=== PATIENT | male | born 1965 | race Caucasian/White ===

== ENCOUNTER → 2021-05-24 | Outpatient (CLI) | payer OTHER | LOC: LAB 12:25 | PROVIDERS: ATTEND Physician Assistant | DX: Z79.899 Other long term (current) drug therapy (principal) | CPT/HCPCS: 36415; 86480 ==

== ENCOUNTER → 2022-08-03 | Outpatient (CLI) | payer OTHER ==
[2022-08-03 15:49] LABS: ALBUMIN 4.2 GM/DL (3.2-4.5); HEMATOCRIT 47 % (40-54); HEMOGLOBIN 16.4 g/dL (13.3-17.7); MEAN CORPUSCULAR HEMOGLOBIN 31 pg (25-34); MEAN CORPUSCULAR HGB CONC 35 g/dL (32-36); MEAN CORPUSCULAR VOLUME 88 fL (80-99); MEAN PLATELET VOLUME 9.8 fL (9.0-12.2); PLATELET COUNT 202 10^3/uL (130-400); POTASSIUM 3.9 MMOL/L (3.6-5.0); WHITE BLOOD COUNT 6.7 10^3/uL (4.3-11.0)
[2022-08-03 15:50] LABS: CALCIUM 8.9 MG/DL (8.5-10.1)
[2022-08-03 15:52] LABS: TOTAL PROTEIN 7.1 GM/DL (6.4-8.2)
[2022-08-03 15:53] LABS: BILIRUBIN,TOTAL 0.8 MG/DL (0.1-1.0)
[2022-08-03 15:55] LABS: CREATININE SERUM 1.05 MG/DL (0.60-1.30)
== END ==
LOC: LAB 15:13
PROVIDERS: ATTEND Physician Assistant
DX: L40.0 Psoriasis vulgaris (principal)
CPT/HCPCS: 36415; 80053; 85027

== ENCOUNTER → 2022-12-19 | Outpatient (CLI) | payer OTHER ==
[2022-12-19 07:41] LABS: BASOPHILS % (AUTO) 1 % (0-10); EOSINOPHILS # (AUTO) 0.1 10^3/uL (0.0-0.3); EOSINOPHILS % (AUTO) 1 % (0-10); HEMATOCRIT 49 % (40-54); HEMOGLOBIN 17.4 g/dL (13.3-17.7); LYMPHOCYTES # (AUTO) 1.8 10^3/uL (1.0-4.0); LYMPHOCYTES % (AUTO) 26 % (12-44); MEAN CORPUSCULAR HEMOGLOBIN 31 pg (25-34); MEAN CORPUSCULAR HGB CONC 35 g/dL (32-36); MEAN CORPUSCULAR VOLUME 87 fL (80-99); MONOCYTES # (AUTO) 0.7 10^3/uL (0.0-1.0); MONOCYTES % (AUTO) 10 % (0-12); NEUTROPHILS # (AUTO) 4.3 10^3/uL (1.8-7.8); NEUTROPHILS % (AUTO) 62 % (42-75); PLATELET COUNT 205 10^3/uL (130-400)
[2022-12-19 07:51] LABS: ALBUMIN 4.5 GM/DL (3.2-4.5); POTASSIUM 4.1 MMOL/L (3.6-5.0)
[2022-12-19 07:52] LABS: CALCIUM 9.4 MG/DL (8.5-10.1)
[2022-12-19 07:54] LABS: TOTAL PROTEIN 7.3 GM/DL (6.4-8.2)
[2022-12-19 07:55] LABS: BILIRUBIN,TOTAL 1.4 MG/DL (0.1-1.0)
[2022-12-19 07:57] LABS: CREATININE SERUM 1.15 MG/DL (0.60-1.30)
== END ==
LOC: LAB 07:22
PROVIDERS: ATTEND Physician Assistant
DX: Z79.899 Other long term (current) drug therapy (principal)
CPT/HCPCS: 36415; 80053; 85025; 86480